=== PATIENT | male | born 1965 ===

== ENCOUNTER 2016-09-24 12:45 | Inpatient (IN) ==
--- NOTE | 2016-09-24 15:08 | General Surg History&Physical ---
Assessment and Plan - Time spent with patient Time spent with patient: Greater than 30 minutes (1) Plantar ulcer of left foot with fat layer exposed Status: Acute Assessment and plan: This has some necrotic areas. There is not really cellulitis but there is some necrotic tissue which we are debriding away at the bedside while examining him using sterile technique. He will need treatment with IV antibiotics. We are trying to get his records from [facility]. His most recent records from our institution are from 2011. I am going to start him on IV Zosyn. We will reassess this in the morning and it may require further debridement. I explained to him that sometimes this needs several episodes of debridement to clean completely clear up any infection. Current Visit: Yes History of Present Illness Chief complaint: Ulcer left foot History of present illness: Mr. Stiles is a 51 year old male Who is been in inpatient [facility] for the last several days and was transferred by Dr. Moreno after she contacted me this morning since she felt that his foot was not getting better. He states that he has had an ulcerated area on his left foot for the last month and this is being cared for [facility] by Dr. Hastings. He does not think that he has had fever or chills and has not had increased pain in his foot. He cannot really assess his foot since the processes mainly on the bottom of his foot. He has had extensive infections in his right foot which was cared for several years ago at the wound healing center Allergies Allergy/AdvReac Type Severity Reaction Status Date / Time Unable to Obtain Allergy Verified 09/24/16 15:18 Medical,Surgical,& Family Hx - Medical History Endocrine: History of: Diabetes Mellitus (IDDM) - Surgical History Additional Surgical History: Amputations and free flap right lower extremity - Family History Family History: Reports;: Family Diabetes Exam - Constitutional General appearance: no acute distress - Head Head exam: Present: normocephalic - Eye Eye exam: Absent: scleral icterus - ENT Mouth exam: Present: normal voice - Neck Neck exam: Present: trachea midline - Respiratory Respiratory exam: Present: clear to auscultation bilaterally. Absent: accessory muscle use - Cardiovascular Cardiovascular exam: Present: RRR - GI/Abdominal GI/Abdominal exam: Present: soft. Absent: distended, tenderness, rebound - Extremities Exam Extremities exam: Present: other (There is a chronic appearing ulcer of his left foot which is granulating. At the inferior portion of this ulcer is some necrotic tissue extending into the subcutaneous space. Just proximal to this is about a 2 x 3 cm area of bullous change of the skin). Absent: edema - Neurological Exam Neurological exam: Present: alert, oriented X3. Absent: motor sensory deficit Speech: Present: normal - Skin Skin exam: Present: normal color - Constitutional Constitutional: Absent: chills, fever(s) - Cardiovascular Cardiovascular: Absent: chest pain at rest, chest pain with activity, dyspnea, dyspnea on exertion, syncope - Respiratory Respiratory: Absent: dyspnea, hemoptysis, dyspnea on exertion - Gastrointestinal Gastrointestinal: Absent: abdominal pain, hematemesis, hematochezia, nausea, vomiting - Genitourinary Genitourinary: Absent: hematuria - Musculoskeletal Musculoskeletal: Absent: back pain - Neurological Neurological: Absent: syncope - Endocrine Endocrine: Absent: polyuria Hematologic/Lymphatic: Absent: easy bruising
--- NOTE | 2016-09-24 15:10 | Operative Note ---
Date of procedure: 09/24/16 Pre-op diagnosis: Necrotic plantar ulcer left foot with necrosis of subcutaneous tissue and s Post-op diagnosis: same Procedure: Excisional debridement of skin and subcutaneous tissue 1 x 4 cm left foot Findings and technique: After informed consent was obtained the patient's left foot was prepped and draped in the bedside in the patient's room. The patient had just eaten a full lunch and since the patient's foot was essentially anesthetic I felt that we could probably do adequate debridement at the bedside. The patient understood and agreed. Patient had no difficulty and had no pain with the procedure. There was 2 separate necrotic areas of ulceration with overlying bullous change of the skin. The skin was sharply debrided away with a #15 blade. There was full-thickness necrosis down into subcutaneous tissue which was debrided over 1 x 2 cm area on the medial foot over the first metatarsal and a second 1 x 2 cm area over the first metatarsal head. This was cultured as well and debrided tissue removed and this irrigated and packed open with sterile gauze and a dressing applied. He appeared to tolerate the procedure well. Was minimal blood loss. Anesthesia: none Surgeon / Physician: Les Deal III. Estimated blood loss: minimal Specimens: other (Cultures) Condition: stable Disposition: no change
[2016-09-24] MEDS ORDERED: MORPHINE 2 MG/1 ML SYRINGE IV PRN (15:11)
[2016-09-24] MEDS ORDERED: GLUCAGON 1 MG VIAL IM PRN ×2 (15:11→18:11)
[2016-09-24] MEDS ORDERED: ONDANSETRON 4 MG/2 ML VIAL IV PRN (15:11)
[2016-09-24] MEDS ORDERED: DEXTROSE 50% 25 GM/50 ML VIAL IV PRN ×2 (15:11→18:11)
[2016-09-24] MEDS ORDERED: ACETAMINOPHEN 325 MG TABLET PO PRN (15:11)
[2016-09-24 17:19] LABS: Basophils # 0.1 10*3/uL (0.0-0.2); Basophils % 0.4 % (0.0-0.8); Eosinophils % 0.3 % (0.00-10.9); Hematocrit 34.6 VOL% (42.0-52.0); Hemoglobin 11.6 GM/DL (14.0-18.0); Immature Granulocytes % 0.6 %; Immature Granulocytes Absolute 0.09 #; Lymphocytes # 1.3 10*3/uL (1.4-4.0); Lymphocytes % 8.6 % (21.2-54.2); Mean Corpuscular HGB Conc 33.5 GM/DL (32-36); Mean Corpuscular Hemoglobin 29 PG (27-34); Mean Corpuscular Volume 86.9 FL (87-102); Mean Platelet Volume 10.5 FL (9.6-12.0); Monocytes # 1.2 10*3/uL (0.11-0.8); Monocytes % 7.5 % (1.7-12.7); Neutrophils % 82.6 % (38.7-73.9); Platelet Count 377 T/CUMM (130-400); Red Blood Count 3.98 MC/CUMM (3.8-5.5); Red Cell Distribution Width 12.3 % (9.3-17.3); White Blood Count 15.7 T/CUMM (4-12)
[2016-09-24 17:47] LABS: Calcium 8.2 MG/DL (8.5-10.1); Potassium 5.1 MMOL/L (3.5-5.1)
[2016-09-24] MEDS: PIPERACILLIN/TAZOBACTAM 3,375 MG in SODIUM CHLORIDE 0.9% 100 ML IV SCH (18:07)
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
[2016-09-24] MEDS: INSULIN REGULAR 100 UNIT/ML SUBCUT SCH (21:37)
[2016-09-25] MEDS: PIPERACILLIN/TAZOBACTAM 3,375 MG in SODIUM CHLORIDE 0.9% 100 ML IV SCH ×4 (00:01→23:39)
--- NOTE | 2016-09-25 07:08 | Event Note ---
He feels well. His vital signs are stable but he has low-grade temperature. His white blood cell count was elevated yesterday. His foot looks better but I feel like he could benefit from further debridement. I think further debridement needs to be done under anesthesia. Procedure and risk of been explained and he wishes to proceed.
[2016-09-25] MEDS: INSULIN REGULAR 100 UNIT/ML SUBCUT SCH ×4 (08:16→21:30)
[2016-09-25] MEDS ORDERED: BUPIVACAINE 0.25% 50 ML VIAL ONE (11:09)
--- NOTE | 2016-09-25 11:55 | Anesthesia Post-Op ---
Anesthesia Post OP - Post Ansesthetic Evaluation Patient seen in post op: Yes Resp: within normal limits CV: within normal limits Mental: within normal limits Temp: within normal limits [id number]: within normal limits Nausea and Vomiting: within normal limits Pain: within normal limits
[2016-09-25] MEDS ORDERED: HYDROmorphone 2 MG/1 ML VIAL IV PRN (11:59)
[2016-09-25] MEDS ORDERED: ONDANSETRON 4 MG/2 ML VIAL IV PRN (11:59)
[2016-09-25] MEDS ORDERED: LACTATED RINGERS 1,000 ML IV SCH (12:00)
--- NOTE | 2016-09-25 12:01 | Operative Note ---
Date of procedure: 09/25/16 Pre-op diagnosis: Necrotizing soft tissue infection left foot Post-op diagnosis: same Procedure: Excisional debridement of skin and subcutaneous tissue 2 x 15 x 1 cm Findings and technique: After informed consent was obtained the patient was brought the operating room and placed in supine position. After IV sedation was administered the patient's left foot was prepped and draped in usual sterile fashion. Inspection of the foot revealed the 2 previously debrided sites 1 over the metatarsal head and one over the mid medial foot and there appeared to be intact skin between these but as I explored into these debrided areas there was necrosis of subcutaneous tissue. This was less full necrosis and more micro-abscesses throughout the subcutaneous tissue and the plantar fat pad. The 2 debrided areas were connected with an incision in this tissue debrided mostly debriding subcutaneous tissue but some skin edge and this was taken proximally on the foot and then also debrided distally on the foot into the web space between the first and third toes where the patient had a previous amputation. This extended beneath the intact skin of this web space up to the dorsal aspect of the foot to his old amputation scar. I made a separate incision at this amputation scar and debrided subcutaneous tissue from this space as well. This was copiously irrigated. All remaining tissue appeared viable. All fascia appeared viable. The wound was packed open after good hemostasis was obtained. This was packed with iodoform gauze and a bulky dressing applied. Anesthesia: MAC, local Surgeon / Physician: Les Deal III. Estimated blood loss: other (25 mL) Specimens: none sent Condition: stable Disposition: PACU Results - Labs CBC & BMP: 09/24/16 16:32 09/24/16 16:32 Discharge Plan - Discharge Medications No Action Simvastatin 20 mg PO BEDTIME Potassium Chloride 10 meq PO BID Lisinopril 10 mg PO DAILY Insulin Detemir [Levemir] 35 unit SUBCUT BEDTIME Insulin Aspart [NovoLOG] 10 unit SUBCUT TID W/MEALS Gabapentin 100 mg PO BEDTIME Aspirin [Ecotrin] 81 mg PO DAILY Ranitidine Tab [Zantac Tab] 150 mg PO BEDTIME Gemfibrozil 600 mg PO BID - Follow Up or Referral - Forms/Instructions
[2016-09-25] MEDS ORDERED: MIDAZOLAM 2 MG/2 ML VIAL ONE (12:33)
[2016-09-25] MEDS ORDERED: fentaNYL 100 MCG/2 ML VIAL ONE (12:33)
[2016-09-25] MEDS: ENOXAPARIN 40 MG/0.4 ML SYRINGE SUBCUT SCH (13:54)
[2016-09-25] MEDS: PANTOPRAZOLE 40 MG TABLET PO SCH (13:54)
--- NOTE | 2016-09-25 18:23 | Hospitalist Progress Note ---
Hospitalist: Subjective Interval history: Pt reports he is upset because he asked for a diet sprite and did not receive it yet. No fever. No cp or SOB. Tolerating po. +BM yesterday. Pain controlled. 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 DM education. I.S.S. Resume Gabapentin. Resume ASA (2) Left Diabetic plantar foot ulcer stage 3-4 Status: Acute Current Visit: Yes - On Zosyn. s/p debridement 09/24 and 09/25. F/U wound and blood cultures. Mgt per primary service. ? wound vac (3) Dyslipidemia Status: Acute Assessment and plan: Current Visit: Yes - check FLP. Resume statin (4) GERD- - on PPI (takes Zantac at home) Lovenox DVT prophylaxis D/W pt and all questions answered.
[2016-09-25] MEDS: SIMVASTATIN 20 MG TABLET PO SCH (21:30)
[2016-09-25] MEDS: GABAPENTIN 100 MG CAPSULE PO SCH (21:30)
[2016-09-25] MEDS: INSULIN GLARGINE 100 UNIT/ML SUBCUT SCH (21:30)
[2016-09-26 06:50] LABS: Basophils # 0.1 10*3/uL (0.0-0.2); Basophils % 0.5 % (0.0-0.8); Eosinophils # 0.6 10*3/uL (0.0-0.87); Eosinophils % 4.4 % (0.00-10.9); Hematocrit 29.5 VOL% (42.0-52.0); Immature Granulocytes % 0.5 %; Immature Granulocytes Absolute 0.06 #; Lymphocytes # 2.9 10*3/uL (1.4-4.0); Lymphocytes % 23.3 % (21.2-54.2); Mean Corpuscular HGB Conc 33.9 GM/DL (32-36); Mean Corpuscular Hemoglobin 29 PG (27-34); Mean Corpuscular Volume 85.8 FL (87-102); Mean Platelet Volume 10.2 FL (9.6-12.0); Monocytes # 1.2 10*3/uL (0.11-0.8); Monocytes % 9.9 % (1.7-12.7); Neutrophils # 7.6 10*3/uL (1.4-7.4); Neutrophils % 61.4 % (38.7-73.9); Platelet Count 389 T/CUMM (130-400); Red Blood Count 3.44 MC/CUMM (3.8-5.5); Red Cell Distribution Width 12.2 % (9.3-17.3); White Blood Count 12.4 T/CUMM (4-12)
[2016-09-26 07:17] LABS: Albumin 1.7 G/DL (3.4-5.0); Potassium 4.3 MMOL/L (3.5-5.1)
[2016-09-26 07:18] LABS: Risk Ratio 6.17; VLDL CHOLESTEROL 31.6 MG/DL
[2016-09-26] MEDS: INSULIN REGULAR 100 UNIT/ML SUBCUT SCH ×4 (09:27→21:13)
[2016-09-26] MEDS: INSULIN LISPRO 100 UNIT/ML SUBCUT SCH ×3 (09:27→17:07)
[2016-09-26] MEDS: PANTOPRAZOLE 40 MG TABLET PO SCH (09:28)
[2016-09-26] MEDS: ENOXAPARIN 40 MG/0.4 ML SYRINGE SUBCUT SCH (09:28)
[2016-09-26] MEDS: PIPERACILLIN/TAZOBACTAM 3,375 MG in SODIUM CHLORIDE 0.9% 100 ML IV SCH ×3 (09:33→23:52)
--- NOTE | 2016-09-26 13:36 | Hospitalist Progress Note ---
Hospitalist: Subjective Interval history: Pt states pain controlled. No fever. No cp or SOB. Last BM 09/25. Tolerating po. 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 BS improving. May need to adjust but monitor today. DM education. Cont I.S.S. and accuchecks. Cont Gabapentin. Cont ASA (2) Left Diabetic plantar foot ulcer stage 3-4 Status: Acute Current Visit: Yes - On Zosyn. s/p debridement 09/24 and 09/25. F/U wound and blood cultures. Mgt per primary service. ? wound vac. D/W charge nurse (3) Dyslipidemia Status: Acute Assessment and plan: Current Visit: Yes - FLP reviewed. Cont statin and resume gemfibrozil. (4) GERD- - on PPI (takes Zantac at home) Lovenox DVT prophylaxis D/W pt, nurse exhibitions and collections manager and all questions answered.
[2016-09-26] MEDS: GEMFIBROZIL 600 MG TABLET PO SCH (17:05)
[2016-09-26] MEDS: SIMVASTATIN 20 MG TABLET PO SCH (21:12)
[2016-09-26] MEDS: GABAPENTIN 100 MG CAPSULE PO SCH (21:13)
[2016-09-26] MEDS: INSULIN GLARGINE 100 UNIT/ML SUBCUT SCH (21:13)
[2016-09-27] MEDS: GEMFIBROZIL 600 MG TABLET PO SCH ×2 (08:21→16:39)
[2016-09-27] MEDS: INSULIN REGULAR 100 UNIT/ML SUBCUT SCH ×4 (08:21→21:55)
[2016-09-27] MEDS: PANTOPRAZOLE 40 MG TABLET PO SCH (08:21)
[2016-09-27] MEDS: ENOXAPARIN 40 MG/0.4 ML SYRINGE SUBCUT SCH (08:21)
[2016-09-27] MEDS: INSULIN LISPRO 100 UNIT/ML SUBCUT SCH ×3 (08:22→16:38)
[2016-09-27] MEDS: PIPERACILLIN/TAZOBACTAM 3,375 MG in SODIUM CHLORIDE 0.9% 100 ML IV SCH ×3 (08:22→16:38)
--- NOTE | 2016-09-27 09:24 | General Surgery Progress Note ---
Assessment and Plan (1) Plantar ulcer of left foot with fat layer exposed Status: Acute Assessment and plan: This has some necrotic areas. There is not really cellulitis but there is some necrotic tissue which we are debriding away at the bedside while examining him using sterile technique. He will need treatment with IV antibiotics. We are trying to get his records from [facility]. His most recent records from our institution are from 2011. I am going to start him on IV Zosyn. We will reassess this in the morning and it may require further debridement. I explained to him that sometimes this needs several episodes of debridement to clean completely clear up any infection. 09/27: We will schedule him for further debridement in the morning. We will continue antibiotics and dressing changes today. Current Visit: Yes Subjective Patient reports: Present: feels better. Absent: still having pain, fever Exam - Constitutional Vitals: Period Temp Pulse Resp BP Sys/Singh Pulse Ox Last 24 Hr 97.9 F-98.4 F 71-75 16-20 139-186/70-90 95-98 General appearance: no acute distress - ENT Mouth exam: Present: normal voice - Respiratory Respiratory exam: Absent: accessory muscle use - Extremities Exam Extremities exam: Present: other (The wound has scattered areas of necrosis in the subcutaneous tissue. This could probably benefit from further debridement.) . Absent: edema Results - Labs CBC & BMP: 09/26/16 06:15 09/26/16 06:15 Lab Results: I have reviewed the past 24 hour labs
--- NOTE | 2016-09-27 10:08 | Hospitalist Progress Note ---
Hospitalist: Subjective Interval history: Pt denies any new complaints. No significant overnight events noted/reported. 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 BS improving. May need to adjust but monitor today. DM education. Cont I.S.S. and accuchecks. Cont Gabapentin. Cont ASA (2) Left Diabetic plantar foot ulcer stage 3-4 Status: Acute Current Visit: Yes - On Zosyn. s/p debridement 09/24, 09/25, with plans for further debridement . F/U wound and blood cultures. Mgt per primary service. ? wound vac--surgery to decide. (3) Dyslipidemia Status: Acute Assessment and plan: Current Visit: Yes - FLP reviewed. Cont statin and gemfibrozil. (4) GERD- - on PPI (takes Zantac at home) Lovenox DVT prophylaxis D/W pt, nurse hotel assistant manager and cyanide case hardener and all questions answered. I will be away several days. One of my associates will follow in my absence.
[2016-09-27] MEDS: CHLORHEXIDINE 4% SOLN 118 ML BOTTLE TOP SCH (10:50)
[2016-09-27] MEDS: SODIUM HYPOCHLORITE 0.25% IRRIG 473 ML BOTTLE TOP SCH (10:50)
[2016-09-27] MEDS: GABAPENTIN 100 MG CAPSULE PO SCH (21:54)
[2016-09-27] MEDS: SIMVASTATIN 20 MG TABLET PO SCH (21:54)
[2016-09-27] MEDS: INSULIN GLARGINE 100 UNIT/ML SUBCUT SCH (21:54)
[2016-09-28] MEDS: PIPERACILLIN/TAZOBACTAM 3,375 MG in SODIUM CHLORIDE 0.9% 100 ML IV SCH ×4 (00:10→23:47)
[2016-09-28] MEDS ORDERED: LIDOCAINE 2% 5 ML VIAL ONE (08:35)
[2016-09-28] MEDS ORDERED: ONDANSETRON 4 MG/2 ML VIAL ONE (08:35)
[2016-09-28] MEDS ORDERED: PROPOFOL 200 MG/20 ML VIAL IV ONE (08:35)
[2016-09-28] MEDS: INSULIN REGULAR 100 UNIT/ML SUBCUT SCH ×4 (08:58→21:18)
[2016-09-28] MEDS: PANTOPRAZOLE 40 MG TABLET PO SCH (08:59)
[2016-09-28] MEDS: SODIUM HYPOCHLORITE 0.25% IRRIG 473 ML BOTTLE TOP SCH (08:59)
[2016-09-28] MEDS: INSULIN LISPRO 100 UNIT/ML SUBCUT SCH ×3 (08:59→17:53)
[2016-09-28] MEDS: ENOXAPARIN 40 MG/0.4 ML SYRINGE SUBCUT SCH (08:59)
[2016-09-28] MEDS: GEMFIBROZIL 600 MG TABLET PO SCH ×2 (08:59→17:52)
[2016-09-28] MEDS: CHLORHEXIDINE 4% SOLN 118 ML BOTTLE TOP SCH (08:59)
--- NOTE | 2016-09-28 09:23 | Operative Note ---
Date of procedure: 09/28/16 Pre-op diagnosis: Necrotizing soft tissue infection left foot Post-op diagnosis: same Procedure: Excisional debridement of skin subcutaneous tissue and fascia left foot 13 cm x 3 cm x 1.5 cm Findings and technique: After informed consent was obtained patient was brought the operating room placed in supine position. After IV sedation was administered the patient's left foot was prepped and draped in usual sterile fashion inspection of his wound which was a long narrow wound extending from the web space between his first and third toes and along the plantar aspect of his foot to the plantar medial aspect of his midfoot was inspected there is some necrotic skin edge which was only about half a centimeter from each wound edge and then undermining beneath this was further necrotic subcutaneous tissue. Scattered in the more distal end of the wound near the metatarsal head was some nonviable appearing fascia as well. Further excisional debridement was carried out with a #10 blade excising skin edge and undermining under into the partially necrotic subcutaneous tissue. The fascia and the base of the wound was also excised with a #10 blade blade and this was done more aggressively between the first and third toes where he had a previous second toe amputation in the past. There was a good deal of necrotic plantar fat pad which was debrided away. I debrided off to all healthy tissue. This exposed the first metatarsal phalangeal joint but did not enter the joint space itself. I think that the long-term viability of his first metatarsal phalangeal joint and first toe are going to be questionable. He may require complete amputation in a ray amputation type to get complete control of all infected surfaces. I did not amputate today. With a much more aggressive debridement done the wound was packed open with moist saline gauze and a bulky dressing. We will look at this again over the next few days and may need to do a ray amputation. Anesthesia: MAC, local Surgeon / Physician: Les Deal III. Estimated blood loss: other (25 mL) Specimens: other (Repeat cultures) Condition: stable Disposition: PACU Results - Labs CBC & BMP: 09/26/16 06:15 09/26/16 06:15 Discharge Plan - Discharge Medications No Action Simvastatin 20 mg PO BEDTIME Potassium Chloride 10 meq PO BID Lisinopril 10 mg PO DAILY Insulin Detemir [Levemir] 35 unit SUBCUT BEDTIME Insulin Aspart [NovoLOG] 10 unit SUBCUT TID W/MEALS Gabapentin 100 mg PO BEDTIME Aspirin [Ecotrin] 81 mg PO DAILY Ranitidine Tab [Zantac Tab] 150 mg PO BEDTIME Gemfibrozil 600 mg PO BID - Follow Up or Referral - Forms/Instructions
[2016-09-28] MEDS ORDERED: fentaNYL 100 MCG/2 ML VIAL ONE (09:27)
[2016-09-28] MEDS ORDERED: MIDAZOLAM 2 MG/2 ML VIAL ONE (09:27)
--- NOTE | 2016-09-28 16:12 | Hospitalist Progress Note ---
Hospitalist: Subjective Interval history: Mr. Stiles is 51-year-old male who was admitted with surgery for diabetic foot ulcer. Hospitalist service has been consulted for management of diabetes. Exam - Constitutional Vitals: Period Temp Pulse Resp BP Sys/Singh Pulse Ox Last 24 Hr 97.0 F-99.2 F 68-86 16-20 109-185/53-94 92-100 Exam: General: No Acute Distress HEENT: Normocephalic, atraumatic, Extra ocular movements intact Neck: Supple, No JVD Chest: Clear to auscultation B/L CV: S1 + S2 audible without murmur, gallop or rub Abd: soft, NT, Non-distended, BS + Ext: Warm no c/c/e +Left foot with bandage in place Skin: No purpura, bruising or rash Rheumatologic: No Joint deformities Neurologic: Strengtg 5/5 all extremities, no gross sensory deficits Results - Labs CBC & BMP: 09/26/16 06:15 09/26/16 06:15 - Impressions (1) Diabetes mellitus uncontrolled on admission with HgbA1c >15.5 with DM neuropathy Status: Chronic Current Visit: Yes -Cont home insulin. BS improving on current regimen of Lantus and lispro, continue; DM education. Cont I.S.S. and accuchecks. Cont Gabapentin. Cont ASA (2) Left Diabetic plantar foot ulcer stage 3-4 Status: Acute Current Visit: Yes - On Zosyn. s/p debridement 09/24, 09/25, with plans for further debridement . F/U wound and blood cultures. Mgt per primary service. ? wound vac--surgery to decide. (3) Dyslipidemia Status: Acute Assessment and plan: Current Visit: Yes - FLP reviewed. Cont statin and gemfibrozil. (4) GERD- - on PPI (takes Zantac at home) Lovenox DVT prophylaxis
[2016-09-28] MEDS: GABAPENTIN 100 MG CAPSULE PO SCH (21:19)
[2016-09-28] MEDS: SIMVASTATIN 20 MG TABLET PO SCH (21:19)
[2016-09-28] MEDS: INSULIN GLARGINE 100 UNIT/ML SUBCUT SCH (21:19)
[2016-09-29] MEDS: PIPERACILLIN/TAZOBACTAM 3,375 MG in SODIUM CHLORIDE 0.9% 100 ML IV SCH ×4 (08:55→23:49)
[2016-09-29] MEDS: PANTOPRAZOLE 40 MG TABLET PO SCH (08:56)
[2016-09-29] MEDS: ENOXAPARIN 40 MG/0.4 ML SYRINGE SUBCUT SCH (08:56)
[2016-09-29] MEDS: GEMFIBROZIL 600 MG TABLET PO SCH ×2 (08:56→17:59)
[2016-09-29] MEDS: INSULIN REGULAR 100 UNIT/ML SUBCUT SCH ×4 (08:56→21:11)
[2016-09-29] MEDS: INSULIN LISPRO 100 UNIT/ML SUBCUT SCH ×3 (08:56→17:59)
--- NOTE | 2016-09-29 11:02 | Event Note ---
51-year-old male with history of diabetes admitted by Dr. Toyin LIZ on 09/24/2016 with right diabetic foot wound. Patient was taken to the OR on 09/24/2016 for debridement of his left foot wound. He was taken back to the OR on 09/28/2016 for necrotizing soft history of infection. Patient is afebrile and vital signs are stable. Patient's blood sugars are in the 200- 300s. Hospital medicine is following for medical management. Patient's wound looks clean today though it is somewhat soupy. Will readjust wound care orders and reevaluate tomorrow. Cultures thus far are negative at [address] Blum has seen and examined patient for Dr. Toyin LIZ today.
--- NOTE | 2016-09-29 15:58 | Hospitalist Progress Note ---
Hospitalist: Subjective Interval history: Mr. Stiles is 51-year-old male who was admitted with surgery for diabetic foot ulcer. Hospitalist service has been consulted for management of diabetes. Exam - Constitutional Vitals: Period Temp Pulse Resp BP Sys/Singh Pulse Ox Last 24 Hr 97.4 F-99.2 F 72-86 18-20 129-148/68-80 95-99 Exam: General: No Acute Distress HEENT: Normocephalic, atraumatic, Extra ocular movements intact Neck: Supple, No JVD Chest: Clear to auscultation B/L CV: S1 + S2 audible without murmur, gallop or rub Abd: soft, NT, Non-distended, BS + Ext: Warm no c/c/e +Left foot with bandage in place Skin: No purpura, bruising or rash Rheumatologic: No Joint deformities Neurologic: Strengtg 5/5 all extremities, no gross sensory deficits Results - Labs CBC & BMP: 09/26/16 06:15 09/26/16 06:15 - Impressions (1) Diabetes mellitus uncontrolled on admission with HgbA1c >15.5 with DM neuropathy Status: Chronic Current Visit: Yes -Cont home insulin. BS improving on current regimen of Lantus and lispro, continue; DM education. Cont I.S.S. and accuchecks. Cont Gabapentin. Cont ASA (2) Left Diabetic plantar foot ulcer stage 3-4 Status: Acute Current Visit: Yes - On Zosyn. s/p debridement 09/24, 09/25, with plans for further debridement . F/U wound and blood cultures. Mgt per primary service. ? wound vac--surgery to decide. (3) Dyslipidemia Status: Acute Assessment and plan: Current Visit: Yes - FLP reviewed. Cont statin and gemfibrozil. (4) GERD- - on PPI (takes Zantac at home) Lovenox DVT prophylaxis
[2016-09-29] MEDS: CHLORHEXIDINE 4% SOLN 118 ML BOTTLE TOP SCH (16:21)
[2016-09-29] MEDS: SODIUM HYPOCHLORITE 0.25% IRRIG 473 ML BOTTLE TOP SCH (16:22)
[2016-09-29] MEDS: GABAPENTIN 100 MG CAPSULE PO SCH (21:10)
[2016-09-29] MEDS: INSULIN GLARGINE 100 UNIT/ML SUBCUT SCH (21:11)
[2016-09-29] MEDS: SIMVASTATIN 20 MG TABLET PO SCH (21:11)
[2016-09-30] MEDS: INSULIN LISPRO 100 UNIT/ML SUBCUT SCH ×3 (07:52→17:27)
[2016-09-30] MEDS: PIPERACILLIN/TAZOBACTAM 3,375 MG in SODIUM CHLORIDE 0.9% 100 ML IV SCH ×3 (08:32→23:37)
[2016-09-30] MEDS: ENOXAPARIN 40 MG/0.4 ML SYRINGE SUBCUT SCH (08:33)
[2016-09-30] MEDS: INSULIN REGULAR 100 UNIT/ML SUBCUT SCH ×4 (08:34→20:31)
[2016-09-30] MEDS: GEMFIBROZIL 600 MG TABLET PO SCH ×2 (08:34→17:27)
[2016-09-30] MEDS: PANTOPRAZOLE 40 MG TABLET PO SCH (08:34)
--- NOTE | 2016-09-30 11:01 | Event Note ---
Afebrile vital signs stable. Status post left foot debridement. Much less drainage today. Wound looks better with some exudate. No significant erythema or necrotic tissue. Continue dressings with Dakin's as this appears to have helped.
[2016-09-30] MEDS: CHLORHEXIDINE 4% SOLN 118 ML BOTTLE TOP SCH (13:30)
[2016-09-30] MEDS: SODIUM HYPOCHLORITE 0.25% IRRIG 473 ML BOTTLE TOP SCH (13:30)
--- NOTE | 2016-09-30 17:10 | Hospitalist Progress Note ---
Hospitalist: Subjective Interval history: Mr. Stiles is 51-year-old male who was admitted with surgery for diabetic foot ulcer. Hospitalist service has been consulted for management of diabetes. Exam - Constitutional Vitals: Period Temp Pulse Resp BP Sys/Singh Pulse Ox Last 24 Hr 97.7 F-99.4 F 70-81 14-18 132-165/68-87 95-99 Exam: General: No Acute Distress HEENT: Normocephalic, atraumatic, Extra ocular movements intact Neck: Supple, No JVD Chest: Clear to auscultation B/L CV: S1 + S2 audible without murmur, gallop or rub Abd: soft, NT, Non-distended, BS + Ext: Warm no c/c/e +Left foot with bandage in place Skin: No purpura, bruising or rash Rheumatologic: No Joint deformities Neurologic: Strengtg 5/5 all extremities, no gross sensory deficits Results - Labs CBC & BMP: 09/26/16 06:15 09/26/16 06:15 - Impressions (1) Diabetes mellitus uncontrolled on admission with HgbA1c >15.5 with DM neuropathy Status: Chronic Current Visit: Yes -Cont home insulin. BS improving on current regimen of Lantus and lispro, continue; DM education. Cont I.S.S. and accuchecks. Cont Gabapentin. Cont ASA (2) Left Diabetic plantar foot ulcer stage 3-4 Status: Acute Current Visit: Yes - On Zosyn. s/p debridement 09/24, 09/25, with plans for further debridement . F/U wound and blood cultures. Mgt per primary service. ? wound vac--surgery to decide. (3) Dyslipidemia Status: Acute Assessment and plan: Current Visit: Yes - FLP reviewed. Cont statin and gemfibrozil. (4) GERD- - on PPI (takes Zantac at home) Lovenox DVT prophylaxis
--- NOTE | 2016-09-30 17:17 | Hospitalist Progress Note ---
Hospitalist: Subjective Interval history: 54-year-old white female with history of chronic paraplegia now admitted with UTI sepsis DVT and pulmonary emboli. She is awake and comfortable. Exam - Constitutional Vitals: Period Temp Pulse Resp BP Sys/Singh Pulse Ox Last 24 Hr 97.7 F-99.4 F 70-81 14-18 132-165/68-87 95-99 Exam: General: No Acute Distress HEENT: Normocephalic, atraumatic, Extra ocular movements intact Neck: Supple, No JVD Chest: Clear to auscultation B/L CV: S1 + S2 audible without murmur, gallop or rub Abd: soft, NT, Non-distended, BS + Ext: Warm no c/c/e +Left foot with bandage in place Skin: No purpura, bruising or rash Rheumatologic: No Joint deformities Neurologic: Strengtg 5/5 all extremities, no gross sensory deficits Results - Labs CBC & BMP: 09/26/16 06:15 09/26/16 06:15 - Impressions 1) DVT (deep venous thrombosis) in Bilateral LE Status: Acute Assessment and plan: Continue Eliquis long-term Current Visit: Yes (2) Sepsis- resolved Status: Acute Assessment and plan: off IV antibiotics Current Visit: Yes (3) Complicated urinary tract infection/ cystitis in a patient with neurogenic bladder Status: Acute Assessment and plan: Neurogenic Bladder; Urine cultures grew MRSA and Enterococcus; received IV Vancomycin and Cipro; ID and Urology were following. ID signed off. On Cipro po now for a total of 10 days of antibiotics. Current Visit: Yes Qualifiers: Urinary tract infection type: acute cystitis (4) LE edema - Cont Lasix with Albumin and check serial labs. Replace lytes as needed (5) Cough- ? bronchospasms- improving - Albuterol prn. CXR showed bronchial crowding and should improve with Lasix. DuoNebs prn. (6) Constipation - improved with MOM. Cont bowel regimen as ordered (7) Anemia of chronic disease Status: Acute Assessment and plan: On eliquis but will continue for now due to DVT and PE; anemia panel reviewed. FOBT pending; will monitor. H and H stable Current Visit: Yes (8) Paraplegia - PT/OT (9) Hx SLE - cont home meds (10) Neurogenic bladder, flaccid Status: Acute Assessment and plan: Albert's has been removed; continue intermittent catheterization Discharge plan to rehab next week
[2016-09-30] MEDS: SIMVASTATIN 20 MG TABLET PO SCH (20:31)
[2016-09-30] MEDS: INSULIN GLARGINE 100 UNIT/ML SUBCUT SCH (20:31)
[2016-09-30] MEDS: GABAPENTIN 100 MG CAPSULE PO SCH (20:31)
--- NOTE | 2016-10-01 08:41 | Event Note ---
The wound looks good and there is no necrotic tissue that needs debridement. There is no cellulitis or signs of infection. He still has a mildly elevated white blood cell count. I do not have any objective evidence or intraoperative evidence of involvement of his first metatarsal phalangeal joint. 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 There is certainly the possibility of infection in and around this large deformed joint. We will continue IV antibiotics for now. I do not see any benefit to further soft tissue debridement at this point and the next step if needed would be a ray amputation.
[2016-10-01] MEDS: INSULIN REGULAR 100 UNIT/ML SUBCUT SCH ×4 (08:47→21:51)
[2016-10-01] MEDS: GEMFIBROZIL 600 MG TABLET PO SCH ×2 (08:47→17:44)
[2016-10-01] MEDS: INSULIN LISPRO 100 UNIT/ML SUBCUT SCH ×3 (08:48→17:43)
[2016-10-01] MEDS: ENOXAPARIN 40 MG/0.4 ML SYRINGE SUBCUT SCH (08:49)
[2016-10-01] MEDS: PANTOPRAZOLE 40 MG TABLET PO SCH (08:49)
[2016-10-01] MEDS: CHLORHEXIDINE 4% SOLN 118 ML BOTTLE TOP SCH (10:00)
[2016-10-01] MEDS: SODIUM HYPOCHLORITE 0.25% IRRIG 473 ML BOTTLE TOP SCH (10:00)
[2016-10-01] MEDS: PIPERACILLIN/TAZOBACTAM 3,375 MG in SODIUM CHLORIDE 0.9% 100 ML IV SCH ×3 (10:06→23:28)
[2016-10-01 11:04] LABS: Basophils % 0.3 % (0.0-0.8); Eosinophils # 0.3 10*3/uL (0.0-0.87); Eosinophils % 3.5 % (0.00-10.9); Hematocrit 29.2 VOL% (42.0-52.0); Hemoglobin 9.7 GM/DL (14.0-18.0); Immature Granulocytes % 0.8 %; Immature Granulocytes Absolute 0.07 #; Lymphocytes # 1.6 10*3/uL (1.4-4.0); Lymphocytes % 17.9 % (21.2-54.2); Mean Corpuscular HGB Conc 33.2 GM/DL (32-36); Mean Corpuscular Hemoglobin 29 PG (27-34); Mean Corpuscular Volume 86.6 FL (87-102); Mean Platelet Volume 9.6 FL (9.6-12.0); Monocytes # 0.6 10*3/uL (0.11-0.8); Monocytes % 6.2 % (1.7-12.7); Neutrophils # 6.3 10*3/uL (1.4-7.4); Neutrophils % 71.3 % (38.7-73.9); Platelet Count 634 T/CUMM (130-400); Red Blood Count 3.37 MC/CUMM (3.8-5.5); Red Cell Distribution Width 12.3 % (9.3-17.3); White Blood Count 8.9 T/CUMM (4-12)
[2016-10-01 11:44] LABS: Calcium 8.1 MG/DL (8.5-10.1); Osmolality,Calculated 284.5 MOS/KG (273-304); Potassium 4.6 MMOL/L (3.5-5.1)
[2016-10-01] MEDS ORDERED: INSULIN GLARGINE 100 UNIT/ML SUBCUT SCH (16:34)
--- NOTE | 2016-10-01 16:36 | Hospitalist Progress Note ---
Assessment and Plan (1) Diabetes Status: Acute Assessment and plan: I am going to increase Lantus from 35-50 units each evening and will follow glucometers in the next 24 hours. Current Visit: Yes (2) Diabetic foot wound Status: Acute Current Visit: Yes Hospitalist: Subjective Interval history: The patient is admitted with diabetic foot infection. He has had debridement with Dr. Deal. The patient complains of pain in the foot. The patient's glucose is less than well controlled. I am going to increase Lantus today. Exam - Constitutional Vitals: Period Temp Pulse Resp BP Sys/Singh Pulse Ox Last 24 Hr 97.5 F-98.3 F 70-81 18-20 101-162/51-95 97-100 General appearance: mild distress, over weight - Respiratory Respiratory exam: Present: clear to auscultation bilaterally Results - Labs CBC & BMP: 10/01/16 10:56 10/01/16 10:56 Lab Results: I have reviewed the past 24 hour labs
[2016-10-01] MEDS: GABAPENTIN 100 MG CAPSULE PO SCH (21:50)
[2016-10-01] MEDS: SIMVASTATIN 20 MG TABLET PO SCH (21:50)
--- NOTE | 2016-10-02 07:14 | Event Note ---
He feels better. He is afebrile and now his white blood cell count is normal. We are probably at a point we could discharge him home on antibiotics by mouth and outpatient wound care. I will need to follow him up again in the next week.
[2016-10-02] MEDS: GEMFIBROZIL 600 MG TABLET PO SCH (08:57)
[2016-10-02] MEDS: PIPERACILLIN/TAZOBACTAM 3,375 MG in SODIUM CHLORIDE 0.9% 100 ML IV SCH (08:57)
[2016-10-02] MEDS: PANTOPRAZOLE 40 MG TABLET PO SCH (08:57)
[2016-10-02] MEDS: ENOXAPARIN 40 MG/0.4 ML SYRINGE SUBCUT SCH (08:59)
[2016-10-02] MEDS: INSULIN REGULAR 100 UNIT/ML SUBCUT SCH ×2 (09:09→12:10)
[2016-10-02] MEDS: INSULIN LISPRO 100 UNIT/ML SUBCUT SCH ×2 (09:09→12:12)
--- NOTE | 2016-10-02 09:13 | Discharge Summary ---
<iMa Flores - Last Filed: 10/02/16 09:06> Hospital Course - Hospital Course Hospital Course: 51-year-old male with history of diabetes and hypertension transferred from [facility] inpatient facility 2 Dr. Toyin LIZ on for worsening left diabetic foot ulcer. He was taken to the operating room on 09/24/[address] Toyin LIZ for excisional debridement of skin and subcutaneous tissue for necrotic plantar ulcer. He was taken back to the operating room on 09/25/2016 and 09/28/2016 for further debridement of necrotizing soft tissue infection. Patient's wound has been stable and there is no further necrotizing tissue. His cultures are back showing sensitivity to clindamycin. Hospital medicine was consulted for his hospital stay to help control his blood sugars and blood pressures. His medicines have been adjusted appropriately and he will be discharged to home with home health for daily dressing changes and p.o. antibiotics. He will follow-up with Dr. Toyin LIZ in his office in 1 week. He will also need to follow-up with primary care physician at the [facility] for diabetes and blood pressure follow- up. Complete discharge instructions were given to the patient. Care coordination, chart review, and completed discharge paperwork took approximately 37 minutes. - Time spent with patient Time with patient DS: Greater than 30 minutes Diagnosis - Discharge Diagnosis (1) Hypertension Status: Chronic (2) Necrotizing soft tissue infection Status: Resolved (3) Diabetes Status: Chronic (4) Diabetic foot wound Status: Chronic Specialty Discharge - Follow Up or Referrals Follow up with: [facility] [Provider Group] - 2 Weeks (Blood sugar and blood pressure management) Les Deal III., MD [Physician] - 10/09/16 1:00 pm Discharge Plan - Discharge Data Disposition: Home Health Service Condition at Discharge: Stable Discharge Diet: diabetic diet Activity: ambulate only with your walker Hygiene: may shower Weight Bearing at Discharge: partial weight bearing Driving: other (No driving if taking pain medications) Contact your physician if you experience:: fever over 101, Redness or swelling Wound / Dressing Care Instructions: Shower daily with Hibiclens, rinse with Dakin's, pack wound with Dakin's moistened 4 x 4, dry 4 x 4, Kerlix and Coban and from toes to above the ankle - Discharge Medications New Chlorhexidine 4% Soln [Hibiclens] 1 applic TOP DAILY applic HYDROcodone/ACETAMIN 7.5-325 [[place] 7.5-325] 1 tablet PO Q4H #30 tablet Sodium Hypochlorite 0.25% Irr [Dakins 1/2 Strength 0.25% Soln] 1 applic TOP DAILY applic Insulin Glargine [Lantus] 50 unit SUBCUT BEDTIME unit Clindamycin HCl [Clindamycin Cap] 300 mg PO QID #40 capsule Continue Simvastatin 20 mg PO BEDTIME Potassium Chloride 10 meq PO BID Lisinopril 10 mg PO DAILY Insulin Aspart [NovoLOG] 10 unit SUBCUT TID W/MEALS Gabapentin 100 mg PO BEDTIME Aspirin [Ecotrin] 81 mg PO DAILY Ranitidine Tab [Zantac Tab] 150 mg PO BEDTIME Gemfibrozil 600 mg PO BID Discontinued Insulin Detemir [Levemir] 35 unit SUBCUT BEDTIME - Follow Up or Referral Follow Up: Les Deal III., MD [Physician] - 10/09/16 1:00 pm [facility] [Provider Group] - 2 Weeks (Blood sugar and blood pressure management) - Forms/Instructions Instructions: Debridement (DC) Exam - Constitutional Vitals: Period Temp Pulse Resp BP Sys/Singh Pulse Ox Last 24 Hr 97.8 F-98.8 F 68-81 16-20 101-162/51-83 96-100 Exam: 51-year-old male, no acute distress, alert and oriented Chest clear CV regular rate and rhythm Abdomen soft nontender Extremities left lower extremity with open wound between first and second digits that is clean with no purulence and no cellulitis Discharge Results Procedures and tests throughout hospitalization: Pending Orders 09/28/16 Abscess Culture Routine Anaerobic Culture Routine Labs on day of discharge: Labs from last 24 hours 10/02/16 10/01/16 10/01/16 07:08 20:37 15:49 WBC RBC Hgb Hct MCV MCH MCHC RDW Plt Count MPV Neut % (Auto) Lymph % (Auto) [place] % (Auto) Eos % (Auto) Baso % (Auto) Neut # (Auto) Lymph # (Auto) [place] # (Auto) Eos # (Auto) Baso # (Auto) Immature Gran % Nucleated RBC % Immature Gran # Nucleated RBCs # Sodium Potassium Chloride Carbon Dioxide Anion Gap BUN Creatinine GFR Calculation BUN/Creatinine Ratio Glucose POC Glucose 213 H 262 H 228 H Calculated Osmolality Calcium 10/01/16 10/01/16 10/01/16 11:26 10:56 10:56 WBC 8.9 RBC 3.37 L Hgb 9.7 L Hct 29.2 L MCV 86.6 L MCH 29 MCHC 33.2 RDW 12.3 Plt Count 634 H MPV 9.6 Neut % (Auto) 71.3 Lymph % (Auto) 17.9 L [place] % (Auto) 6.2 Eos % (Auto) 3.5 Baso % (Auto) 0.3 Neut # (Auto) 6.3 Lymph # (Auto) 1.6 [place] # (Auto) 0.6 Eos # (Auto) 0.3 Baso # (Auto) 0.0 Immature Gran % 0.8 Nucleated RBC % 0.0 Immature Gran # 0.07 Nucleated RBCs # 0.00 Sodium 139 Potassium 4.6 Chloride 106 Carbon Dioxide 27 Anion Gap 10.6 BUN 19 H Creatinine 1.50 H GFR Calculation 66 BUN/Creatinine Ratio 12.00 Glucose 215 H POC Glucose 225 H Calculated Osmolality 284.5 Calcium 8.1 L Preliminary micro results at discharge 09/28/16 Unknown Abscess Culture - Preliminary Foot - Left Staphylococcus aureus Yeast DS: Provider Date of admission: 09/24/16 13:59 Primary care physician: Kena Tidwell MD Attending physician on admission: Les Deal III., Consults: 09/24/16 15:14 Consult to Physician [CONS] Routine Comment: diabetes life management teacher Provider: Jay Rhodes Consult to Specialist Group: Hospitalist When should Consulting Provider be notified: Now Person Notified: Bowen Date Notified: 09/24/16 Time Notified: 16:47 09/26/16 13:35 Consult to Dietitian [CONS] Routine Reason for Dietitian: Dietary Consult Supplements and/or Snacks Other Consult Comment: DM education 09/26/16 13:36 Consult to Diabetes Center, Educator [CONS] Routine Reason for Recreation Attendant Supervisor: Re-education 09/26/16 18:48 Consult to Pastoral Services [CONS] Routine Comment: Pastoral Screen: Declines Visit Request Plan Nurse Visit 09/27/16 09:33 Consult to Anesthesiology [CONS] Routine Consulting Provider: Reason for Anesthesiology: Pre-op Clearance Discharging clinician: MARGARET Castillo Expected date of discharge: 10/02/16 <Jose Tejeda - Last Filed: 10/02/16 09:54> Diagnosis - Discharge Diagnosis (1) Diabetes Status: Chronic (2) Diabetic foot wound Status: Chronic Internal Medicine - DS: Hosp Hospital course: Mr. Stiles is a 51 year old male I evaluated the patient on the date of discharge. Chest is clear and heart has regular rate and rhythm. I coordinated care with MARGARET Cooney. I reconciled the patient's medication list.
[2016-10-02] MEDS ORDERED: POTASSIUM CHLORIDE 10 MEQ TABLET PO SCH (09:15)
--- NOTE | 2016-10-02 09:17 | Discharge Summary ---
Diagnosis - Discharge Diagnosis (1) Diabetes Status: Acute (2) Diabetic foot wound Status: Acute Specialty Discharge - Follow Up or Referrals Follow up with: Les Deal III., MD [Physician] - 10/09/16 1:00 pm Discharge Plan - Discharge Medications New Amoxicillin/Clav Tab [Augmentin Tab] 500 mg PO TID #30 tablet Insulin Glargine [Lantus] 50 unit SUBCUT BEDTIME unit Continue Simvastatin 20 mg PO BEDTIME Potassium Chloride 10 meq PO BID Lisinopril 10 mg PO DAILY Insulin Aspart [NovoLOG] 10 unit SUBCUT TID W/MEALS Gabapentin 100 mg PO BEDTIME Aspirin [Ecotrin] 81 mg PO DAILY Ranitidine Tab [Zantac Tab] 150 mg PO BEDTIME Gemfibrozil 600 mg PO BID Discontinued Insulin Detemir [Levemir] 35 unit SUBCUT BEDTIME - Follow Up or Referral Follow Up: Les Deal III., MD [Physician] - 10/09/16 1:00 pm - Forms/Instructions Exam - Constitutional Vitals: Period Temp Pulse Resp BP Sys/Singh Pulse Ox Last 24 Hr 97.8 F-98.8 F 68-81 16-20 101-162/51-83 96-100 Discharge Results Procedures and tests throughout hospitalization: Pending Orders 09/28/16 Abscess Culture Routine Anaerobic Culture Routine Labs on day of discharge: Labs from last 24 hours 10/02/16 10/01/16 10/01/16 07:08 20:37 15:49 WBC RBC Hgb Hct MCV MCH MCHC RDW Plt Count MPV Neut % (Auto) Lymph % (Auto) [place] % (Auto) Eos % (Auto) Baso % (Auto) Neut # (Auto) Lymph # (Auto) [place] # (Auto) Eos # (Auto) Baso # (Auto) Immature Gran % Nucleated RBC % Immature Gran # Nucleated RBCs # Sodium Potassium Chloride Carbon Dioxide Anion Gap BUN Creatinine GFR Calculation BUN/Creatinine Ratio Glucose POC Glucose 213 H 262 H 228 H Calculated Osmolality Calcium 10/01/16 10/01/16 10/01/16 11:26 10:56 10:56 WBC 8.9 RBC 3.37 L Hgb 9.7 L Hct 29.2 L MCV 86.6 L MCH 29 MCHC 33.2 RDW 12.3 Plt Count 634 H MPV 9.6 Neut % (Auto) 71.3 Lymph % (Auto) 17.9 L [place] % (Auto) 6.2 Eos % (Auto) 3.5 Baso % (Auto) 0.3 Neut # (Auto) 6.3 Lymph # (Auto) 1.6 [place] # (Auto) 0.6 Eos # (Auto) 0.3 Baso # (Auto) 0.0 Immature Gran % 0.8 Nucleated RBC % 0.0 Immature Gran # 0.07 Nucleated RBCs # 0.00 Sodium 139 Potassium 4.6 Chloride 106 Carbon Dioxide 27 Anion Gap 10.6 BUN 19 H Creatinine 1.50 H GFR Calculation 66 BUN/Creatinine Ratio 12.00 Glucose 215 H POC Glucose 225 H Calculated Osmolality 284.5 Calcium 8.1 L Preliminary micro results at discharge 09/28/16 Unknown Abscess Culture - Preliminary Foot - Left Staphylococcus aureus Yeast DS: Provider Date of admission: 09/24/16 13:59 Primary care physician: Kena Tidwell MD Attending physician on admission: Les Deal III., Consults: 09/24/16 15:14 Consult to Physician [CONS] Routine Comment: diabetes cash management specialist Provider: Jay Rhodes Consult to Specialist Group: Hospitalist When should Consulting Provider be notified: Now Person Notified: Bowen Date Notified: 09/24/16 Time Notified: 16:47 09/26/16 13:35 Consult to Dietitian [CONS] Routine Reason for Dietitian: Dietary Consult Supplements and/or Snacks Other Consult Comment: DM education 09/26/16 13:36 Consult to Diabetes Center, Educator [CONS] Routine Reason for Sheet Metal Layout Mechanic: Re-education 09/26/16 18:48 Consult to Pastoral Services [CONS] Routine Comment: Pastoral Screen: Declines Visit Request Channel Layer Visit 09/27/16 09:33 Consult to Anesthesiology [CONS] Routine Consulting Provider: Reason for Anesthesiology: Pre-op Clearance Discharging clinician: Jose Tejeda MD
[2016-10-02] MEDS ORDERED: LISINOPRIL 10 MG TABLET PO SCH (09:30)
[2016-10-02] MEDS ORDERED: ASPIRIN EC 81 MG TABLET PO SCH (09:30)
[2016-10-02 11:17] VITALS: BP 109/64
[2016-10-02] MEDS: SODIUM HYPOCHLORITE 0.25% IRRIG 473 ML BOTTLE TOP SCH (11:25)
[2016-10-02] MEDS: CHLORHEXIDINE 4% SOLN 118 ML BOTTLE TOP SCH (11:25)
== END 2016-10-02 12:40 | disposition home health service (06) | DRG 41 ==
LOC: N.3E 13:59
PROVIDERS: ADMIT Surgery; ATTEND Surgery

== ENCOUNTER 2018-07-16 13:37 | Inpatient (IN) ==
[2018-07-16] MEDS ORDERED: DEXTROSE 50% 25 GM/50 ML VIAL IV PRN (16:33)
[2018-07-16] MEDS ORDERED: ACETAMINOPHEN 325 MG TABLET PO PRN (16:33)
[2018-07-16] MEDS ORDERED: GLUCAGON 1 MG VIAL IM PRN (16:33)
[2018-07-16] MEDS ORDERED: ONDANSETRON 4 MG/2 ML VIAL IV PRN (16:33)
[2018-07-16 17:13] LABS: Basophils # 0.1 10*3/uL (0.0-0.2); Eosinophils # 0.1 10*3/uL (0.0-0.87); Eosinophils % 1.3 % (0.00-10.9); Hematocrit 32.3 VOL% (42.0-52.0); Hemoglobin 10.5 GM/DL (14.0-18.0); Immature Granulocytes % 0.5 %; Immature Granulocytes Absolute 0.03 #; Lymphocytes # 1.4 10*3/uL (1.4-4.0); Lymphocytes % 21.7 % (21.2-54.2); Mean Corpuscular HGB Conc 32.5 GM/DL (32-36); Mean Corpuscular Volume 89.5 FL (87-102); Mean Platelet Volume 11.8 FL (9.6-12.0); Monocytes % 7.7 % (1.7-12.7); Neutrophils % 67.8 % (38.7-73.9); Platelet Count 277 T/CUMM (130-400); Red Blood Count 3.61 MC/CUMM (3.8-5.5); Red Cell Distribution Width 15.4 % (9.3-17.3); White Blood Count 6.2 T/CUMM (4-12)
[2018-07-16 17:32] LABS: Calcium 7.8 MG/DL (8.5-10.1); Osmolality,Calculated 293.4 MOS/KG (273-304)
[2018-07-16] MEDS ORDERED: hydrALAZINE 20 MG/1 ML VIAL IV PRN (17:48)
[2018-07-16] MEDS ORDERED: ALBUTEROL/IPRATROPIUM 3 ML NEB RESP TX PRN (21:16)
[2018-07-16] MEDS: FAMOTIDINE 20 MG TABLET PO SCH (21:38)
[2018-07-16] MEDS: CARVEDILOL 6.25 MG TABLET PO SCH (21:38)
[2018-07-16] MEDS: CETIRIZINE 10 MG TABLET PO SCH (21:39)
[2018-07-16] MEDS: FENOFIBRATE 145 MG TABLET PO SCH (21:39)
[2018-07-16] MEDS: INSULIN LISPRO 100 UNIT/ML SUBCUT SCH (21:45)
[2018-07-16 22:31] LABS: Apearance,Urine CLEAR (Clear); Bilirubin,Urine Negative (Negative); Blood, Urine Small mg/dL (Negative); Glucose,Urine (UA) >=500 mg/dL (Negative); Ketones,Urine Negative (Negative); Mucus,Urine Occasional /LPF (Occasional); Nitrite,Urine Negative (Negative); Protein,Urine >=500 MG/DL; RBC,Urine 1 /HPF (0-4); Urine Color Yellow (Yellow); Urine Specific Gravity 1.013 (1.001-1.035); Urine Urobilinogen < 2.0 EU/DL (0.2-1.0); WBC,Urine 2 /HPF (0-6)
[2018-07-17] MEDS: ALBUTEROL/IPRATROPIUM 3 ML NEB RESP TX SCH ×4 (00:44→19:41)
[2018-07-17 06:00] LABS: Basophils # 0.1 10*3/uL (0.0-0.2); Basophils % 0.9 % (0.0-0.8); Eosinophils # 0.6 10*3/uL (0.0-0.87); Eosinophils % 8.5 % (0.00-10.9); Hematocrit 27.1 VOL% (42.0-52.0); Hemoglobin 8.7 GM/DL (14.0-18.0); Immature Granulocytes % 0.3 %; Immature Granulocytes Absolute 0.02 #; Lymphocytes # 2.1 10*3/uL (1.4-4.0); Lymphocytes % 30.9 % (21.2-54.2); Mean Corpuscular HGB Conc 32.1 GM/DL (32-36); Mean Corpuscular Volume 91.2 FL (87-102); Mean Platelet Volume 11.9 FL (9.6-12.0); Monocytes % 8.7 % (1.7-12.7); Neutrophils % 50.7 % (38.7-73.9); Platelet Count 266 T/CUMM (130-400); Red Blood Count 2.97 MC/CUMM (3.8-5.5); Red Cell Distribution Width 15.6 % (9.3-17.3); White Blood Count 6.7 T/CUMM (4-12)
[2018-07-17 06:40] LABS: Calcium 7.2 MG/DL (8.5-10.1); Osmolality,Calculated 291.3 MOS/KG (273-304); Risk Ratio 3.7; Thyroid Stimulating Hormone 0.842 uIU/ml (0.358-3.74); VLDL CHOLESTEROL 24.2 MG/DL
[2018-07-17] MEDS: INSULIN LISPRO 100 UNIT/ML SUBCUT SCH ×4 (07:05→20:58)
[2018-07-17] MEDS: PANTOPRAZOLE 40 MG TABLET PO SCH (09:13)
[2018-07-17] MEDS: ASPIRIN EC 81 MG TABLET PO SCH (09:13)
[2018-07-17] MEDS: OMEGA 3 ACID ETHYL ESTERS 1 GM CAPSULE PO SCH (09:13)
[2018-07-17] MEDS: CARVEDILOL 6.25 MG TABLET PO SCH ×2 (09:13→17:50)
[2018-07-17 10:12] LABS: Hematocrit 30.2 VOL% (42.0-52.0); Hemoglobin 9.6 GM/DL (14.0-18.0)
[2018-07-17] MEDS: FUROSEMIDE 80 MG TABLET PO SCH (15:47)
[2018-07-17] MEDS: CETIRIZINE 10 MG TABLET PO SCH (20:44)
[2018-07-17] MEDS: FAMOTIDINE 20 MG TABLET PO SCH (20:44)
[2018-07-17] MEDS: FENOFIBRATE 145 MG TABLET PO SCH (20:44)
[2018-07-17 23:34] LABS: Apearance,Urine CLEAR (Clear); Bilirubin,Urine Negative (Negative); Blood, Urine Small mg/dL (Negative); Glucose,Urine (UA) 150 mg/dL (Negative); Hyaline Casts,Urine 3 /LPF (0-3); Ketones,Urine Negative (Negative); Mucus,Urine Occasional /LPF (Occasional); Nitrite,Urine Negative (Negative); Protein,Urine >=500 MG/DL; RBC,Urine 1 /HPF (0-4); Squamous Epithelial Cell,Urine Occasional /HPF (0-10); Urine Color Straw (Yellow); Urine Specific Gravity 1.009 (1.001-1.035); Urine Urobilinogen < 2.0 EU/DL (0.2-1.0); WBC,Urine <1 /HPF (0-6)
[2018-07-17 23:39] LABS: Protein/Creatinine Ratio,Urine 9.4 RATIO
[2018-07-18] MEDS: ALBUTEROL/IPRATROPIUM 3 ML NEB RESP TX SCH ×2 (00:25→07:32)
[2018-07-18 05:57] LABS: Basophils # 0.1 10*3/uL (0.0-0.2); Eosinophils % 13.2 % (0.00-10.9); Hematocrit 27.7 VOL% (42.0-52.0); Hemoglobin 8.5 GM/DL (14.0-18.0); Immature Granulocytes % 0.4 %; Immature Granulocytes Absolute 0.03 #; Lymphocytes # 2.8 10*3/uL (1.4-4.0); Lymphocytes % 36.3 % (21.2-54.2); Mean Corpuscular HGB Conc 30.7 GM/DL (32-36); Mean Platelet Volume 11.9 FL (9.6-12.0); Neutrophils % 39.1 % (38.7-73.9); Platelet Count 264 T/CUMM (130-400); Red Blood Count 2.98 MC/CUMM (3.8-5.5); Red Cell Distribution Width 15.6 % (9.3-17.3); White Blood Count 7.8 T/CUMM (4-12)
[2018-07-18 06:12] LABS: Calcium 7.4 MG/DL (8.5-10.1); Osmolality,Calculated 296.8 MOS/KG (273-304)
[2018-07-18 06:43] LABS: Eosinophils 21 % (0-10); Lymphocytes 32 % (20-55); Segmented Neutrophils 40 % (50-85); Total Cells Counted 100
[2018-07-18 06:44] LABS: Acanthocytes Few; Atypical Lymphocytes Few; Hypochromasia Slight; Microcytosis Slight; Platelet Estimate Normal
[2018-07-18] MEDS: OMEGA 3 ACID ETHYL ESTERS 1 GM CAPSULE PO SCH (09:07)
[2018-07-18] MEDS: ASPIRIN EC 81 MG TABLET PO SCH (09:07)
[2018-07-18] MEDS: PANTOPRAZOLE 40 MG TABLET PO SCH (09:07)
[2018-07-18] MEDS: CARVEDILOL 6.25 MG TABLET PO SCH (09:08)
[2018-07-18] MEDS: FUROSEMIDE 80 MG TABLET PO SCH (09:28)
[2018-07-18] MEDS: INSULIN LISPRO 100 UNIT/ML SUBCUT SCH ×2 (10:39→11:50)
[2018-07-18 12:17] VITALS: BP 142/74
== END 2018-07-18 15:17 | disposition home or self-care (01) | DRG 683 ==
LOC: N.5E → SUATTDRO 15:49
PROVIDERS: ADMIT Internal Medicine; ATTEND Internal Medicine

== ENCOUNTER 2019-12-29 11:28 | Inpatient (IN) ==
[2019-12-29] MEDS ORDERED: DEXTROSE 50% 25 GM/50 ML VIAL IV PRN (16:35)
[2019-12-29] MEDS ORDERED: GLUCAGON 1 MG VIAL IM PRN (16:35)
[2019-12-29 17:27] LABS: Basophils % 0.4 % (0.0-0.8); Eosinophils # 0.1 10*3/uL (0.0-0.87); Eosinophils % 1.4 % (0.00-10.9); Hematocrit 19.1 VOL% (42.0-52.0); Immature Granulocytes % 4.7 %; Immature Granulocytes Absolute 0.35 #; Lymphocytes # 1.2 10*3/uL (1.4-4.0); Lymphocytes % 16.1 % (21.2-54.2); Mean Corpuscular HGB Conc 31.4 GM/DL (32-36); Mean Corpuscular Volume 99.5 FL (87-102); Monocytes % 9.2 % (1.7-12.7); Neutrophils % 68.2 % (38.7-73.9); Platelet Count 154 T/CUMM (130-400); Red Blood Count 1.92 MC/CUMM (3.8-5.5); Red Cell Distribution Width 19.9 % (9.3-17.3); White Blood Count 7.4 T/CUMM (4-12)
[2019-12-29 17:51] LABS: Albumin 2.8 G/DL (3.4-5.0); Bilirubin,Total 2.7 MG/DL (0.2-1.0); Total Protein 7.2 G/DL (6.4-8.3)
[2019-12-29 17:56] LABS: Calcium 5.7 MG/DL (8.5-10.1)
[2019-12-29] MEDS ORDERED: diphenhydrAMINE 50 MG/1 ML VIAL IV PRN (18:01)
[2019-12-29] MEDS ORDERED: ACETAMINOPHEN 325 MG TABLET PO PRN (18:01)
[2019-12-29] MEDS ORDERED: FUROSEMIDE 20 MG/2 ML VIAL IV PRN (18:01)
[2019-12-29] MEDS ORDERED: SODIUM CHLORIDE 0.9% 1,000 ML IV PRN (18:01)
[2019-12-29 18:42] LABS: Hepatitis B Core IgM Quant 0.07 Index; Hepatitis B Surface Ag Quant < 0.10 Index; Hepatitis B Surface Ag Result Negative (Negative); Hepatitis C Virus Ab Quant 0.08 Index; Hepatitis C Virus Ab Result Negative (Negative)
[2019-12-29] MEDS: INSULIN REGULAR 100 UNIT/ML SUBCUT SCH ×2 (20:51→22:56)
[2019-12-29] MEDS: carvediloL 6.25 MG TABLET PO SCH (22:54)
[2019-12-29] MEDS: CETIRIZINE 10 MG TABLET PO SCH (22:54)
[2019-12-30 01:03] LABS: Hematocrit 23.5 VOL% (42.0-52.0)
[2019-12-30 01:06] LABS: Hemoglobin 7.7 GM/DL (14.0-18.0)
[2019-12-30 05:55] LABS: Hematocrit 22.4 VOL% (42.0-52.0); Hemoglobin 7.5 GM/DL (14.0-18.0)
[2019-12-30 06:03] LABS: Basophils % 0.4 % (0.0-0.8); Eosinophils # 0.1 10*3/uL (0.0-0.87); Eosinophils % 1.6 % (0.00-10.9); Hematocrit 22.7 VOL% (42.0-52.0); Hemoglobin 7.5 GM/DL (14.0-18.0); Immature Granulocytes % 2.4 %; Immature Granulocytes Absolute 0.18 #; Lymphocytes # 0.9 10*3/uL (1.4-4.0); Mean Corpuscular Volume 94.2 FL (87-102); Mean Platelet Volume 10.3 FL (9.6-12.0); Monocytes % 8.9 % (1.7-12.7); NRBC # 0.05 10*3/uL; Neutrophils % 74.7 % (38.7-73.9); Platelet Count 144 T/CUMM (130-400); Red Blood Count 2.41 MC/CUMM (3.8-5.5); Red Cell Distribution Width 18.3 % (9.3-17.3); White Blood Count 7.5 T/CUMM (4-12)
[2019-12-30 06:15] LABS: Albumin 2.5 G/DL (3.4-5.0); Bilirubin,Total 2.7 MG/DL (0.2-1.0); Calcium 6.1 MG/DL (8.5-10.1); Osmolality,Calculated 313.8 MOS/KG (273-304); Total Protein 6.7 G/DL (6.4-8.3)
[2019-12-30 06:25] LABS: Hypochromasia 1+; Platelet Estimate Normal
[2019-12-30] MEDS ORDERED: POTASSIUM CHLORIDE 20 MEQ TABLET PO ONE (12:00)
[2019-12-30] MEDS: INSULIN REGULAR 100 UNIT/ML SUBCUT SCH ×3 (12:24→21:26)
[2019-12-30] MEDS: FERROUS SULFATE 325 MG TABLET PO SCH (12:31)
[2019-12-30] MEDS: carvediloL 6.25 MG TABLET PO SCH ×2 (12:31→20:17)
[2019-12-30 16:20] LABS: Hematocrit 23.1 VOL% (42.0-52.0); Hemoglobin 7.7 GM/DL (14.0-18.0)
[2019-12-30] MEDS: CETIRIZINE 10 MG TABLET PO SCH (21:27)
[2019-12-31 06:03] LABS: Basophils % 0.4 % (0.0-0.8); Eosinophils # 0.1 10*3/uL (0.0-0.87); Eosinophils % 1.8 % (0.00-10.9); Hematocrit 22.8 VOL% (42.0-52.0); Hemoglobin 7.6 GM/DL (14.0-18.0); Immature Granulocytes % 1.3 %; Lymphocytes # 1.2 10*3/uL (1.4-4.0); Lymphocytes % 15.5 % (21.2-54.2); Mean Corpuscular HGB Conc 33.3 GM/DL (32-36); Mean Corpuscular Volume 93.8 FL (87-102); Mean Platelet Volume 10.8 FL (9.6-12.0); Monocytes % 13.5 % (1.7-12.7); NRBC # 0.03 10*3/uL; Neutrophils % 67.5 % (38.7-73.9); Platelet Count 146 T/CUMM (130-400); Red Blood Count 2.43 MC/CUMM (3.8-5.5); Red Cell Distribution Width 18.7 % (9.3-17.3); White Blood Count 7.6 T/CUMM (4-12)
[2019-12-31 06:27] LABS: Albumin 2.2 G/DL (3.4-5.0); Bilirubin,Total 2.5 MG/DL (0.2-1.0); Calcium 6.4 MG/DL (8.5-10.1); Osmolality,Calculated 299.8 MOS/KG (273-304); Total Protein 6.1 G/DL (6.4-8.3)
[2019-12-31] MEDS ORDERED: SODIUM CHLORIDE 0.9% 1,000 ML IV SCH (08:00)
[2019-12-31] MEDS: INSULIN REGULAR 100 UNIT/ML SUBCUT SCH ×4 (08:38→22:06)
[2019-12-31] MEDS ORDERED: propofoL 200 MG/20 ML VIAL IV ONE (09:00)
[2019-12-31] MEDS ORDERED: ETOMIDATE 20 MG/10 ML VIAL IV ONE (09:00)
[2019-12-31] MEDS ORDERED: LIDOCAINE 2% 5 ML VIAL ONE (09:00)
[2019-12-31] MEDS: carvediloL 6.25 MG TABLET PO SCH ×2 (19:18→19:19)
[2019-12-31] MEDS: FERROUS SULFATE 325 MG TABLET PO SCH (19:18)
[2019-12-31] MEDS: CETIRIZINE 10 MG TABLET PO SCH (22:06)
[2020-01-01 06:06] LABS: Basophils % 0.2 % (0.0-0.8); Eosinophils # 0.2 10*3/uL (0.0-0.87); Eosinophils % 1.9 % (0.00-10.9); Hematocrit 23.3 VOL% (42.0-52.0); Hemoglobin 7.7 GM/DL (14.0-18.0); Lymphocytes # 1.5 10*3/uL (1.4-4.0); Lymphocytes % 15.1 % (21.2-54.2); Mean Corpuscular Volume 94.7 FL (87-102); Mean Platelet Volume 10.9 FL (9.6-12.0); Monocytes % 13.3 % (1.7-12.7); NRBC # 0.04 10*3/uL; Neutrophils % 68.5 % (38.7-73.9); Platelet Count 128 T/CUMM (130-400); Red Blood Count 2.46 MC/CUMM (3.8-5.5); Red Cell Distribution Width 18.5 % (9.3-17.3); White Blood Count 9.7 T/CUMM (4-12)
[2020-01-01 06:38] LABS: Albumin 2.2 G/DL (3.4-5.0); Bilirubin,Total 2.7 MG/DL (0.2-1.0); Calcium 6.5 MG/DL (8.5-10.1); Osmolality,Calculated 285.5 MOS/KG (273-304); Total Protein 6.4 G/DL (6.4-8.3)
[2020-01-01 06:51] LABS: Hypochromasia 1+; Microcytosis 1+; Ovalocytes Slight; Platelet Estimate Decreased
[2020-01-01] MEDS ORDERED: ACETAMINOPHEN 325 MG TABLET PO ONE (09:45)
[2020-01-01] MEDS: carvediloL 6.25 MG TABLET PO SCH (09:48)
[2020-01-01] MEDS: FERROUS SULFATE 325 MG TABLET PO SCH (09:48)
[2020-01-01 11:33] VITALS: BP 134/59
[2020-01-01] MEDS: INSULIN REGULAR 100 UNIT/ML SUBCUT SCH (11:39)
== END 2020-01-01 15:30 | disposition home or self-care (01) | DRG 377 ==
LOC: N.3E → SUATTDRO 15:50
PROVIDERS: ADMIT Internal Medicine; ATTEND Family Medicine